=== PATIENT | male | born 1945 | race Caucasian/White ===

== ENCOUNTER 2025-03-07 10:49 | Day surgery (SDC) | payer OTHER ==
[2025-03-03 08:09] LABS: MEAN PLATELET VOLUME 8.6 FL (7.4-10.4); RED CELL DISTRIBUTION WIDTH 14.1 % (11.5-14.5)
[2025-03-03 08:11] LABS: APTT 28 SECONDS (22-32); INR 1.1 INR
[2025-03-03 08:36] LABS: CHOL/HDL RATIO 2.8 (0.00-4.99); CREATININE 0.83 MG/DL (0.60-1.10); LDL CHOLESTEROL 109 MG/DL (50-100); TOTAL CARBON DIOXIDE 28.6 MMOL/L (24-32); eGFR 89 ML/MIN
[~2025-03-07] VITALS: Ht 165.1 cm; Wt 77.2 kg
[2025-03-07] VITALS (10 sets, daily range): BP systolic 109–169; BP diastolic 68–105; PULSE 60–82; RESP 16–18; TEMP 97.3; O2SAT 94–99
[~2025-03-07 10:49] MED LIST: ENAL20TA36 PO; MULT-1085 PO
--- NOTE | 2025-03-07 11:35 | ELECTROCARDIOGRAPH REPORT ---
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 Nabor Harley Measurements Intervals [place] Rate: 71 P: -69 VT: 174 QRS: 41 QRSD: 96 T: 30 QT: 428 QTc: 466 Interpretive Statements Sinus or ectopic atrial rhythm Minimal ST elevation, anterior leads Electronically Signed On 03-08-2025 13:22:[address] Nabor Harley Please click the below link to view image of tracing.
[2025-03-07] MEDS ORDERED: verapamil 2.5 mg/ml inj IV ONE (12:36)
[2025-03-07] MEDS ORDERED: heparin 1,000unit/ml 10ml vial 10 ML ONE (12:36)
[2025-03-07] MEDS ORDERED: midazolam 1 mg/ML 2ml injection ONE (12:36)
[2025-03-07] MEDS ORDERED: fentaNYL/PF 50MCG/1 ML 2ML syringe ONE (12:36)
[2025-03-07] MEDS ORDERED: nitroGLYCERIN 500mcg/5mL D5W 5 ML IV ONE (12:37)
[2025-03-07] MEDS ORDERED: LIDOcaine 1% (10mg/ml) 2ml vial ONE (13:08)
[2025-03-07 13:36] LABS: ISTAT HGB ART 13.6 g/dl (14.0-17.9); ISTAT Hct ART 40 %PCV (42-52); ISTAT O2 SATURATION ARTERIAL 96 % (95-98); ISTAT SOURCE ART
[2025-03-07] MEDS ORDERED: iohexol 350 MG/ML 50ML vial IV ONE (13:36)
[2025-03-07] MEDS ORDERED: HYDROcodone/acetaminophen 5mg/325mg tablet PO PRN (14:15)
[2025-03-07] MEDS ORDERED: HYDROcodone/acetaminophen 10/325mg tab PO PRN (14:15)
--- NOTE | 2025-03-07 16:02 | CARDIAC CATH REPORT ---
Cardiac Cath Report Providers to CC CC: ROMAN MINOR MD; Zion Prado MD Procedure Comments: 1. Right Heart Catheterization 2. Selective Coronary Angiography 3. Right Brachial vein access 4. Right Radial artery access Brief History/Indications: 79yo man with HTN, HLD, Severe Aortic stenosis referred for evaluation prior to consideration of AVR. Techniques: After informed consent was obtained, the patient was brought to the cardiac catheterization laboratory and prepped and draped in usual sterile fashion for left heart catheterization and other procedures mentioned above. The right wrist and right AC fossa were anesthetized with 1% Lidocaine. The right AC IV was exchanged over a wire for an 6fr sheath. The right radial artery accessed via the Seldinger technique after which a 6Fr sheath was placed. The [place] was advanced via the right AC sheath to the right atrium, the right ventricle, the pulmonary artery, and wedge position. Through the 6Fr right radial sheath, a TIG was used to engage the left coronary artery and the right coronary artery. At the conclusion of the case the sheath was removed and hemostasis obtained with a VascBand for the radial sheath and manual compression for the brachial sheath. Findings Findings: HEMODYNAMICS: RA: 3 mmHg RV: 25/-, RVEDP 3 mmHg PA: 24/4, mPAP 13 mmHg PCWP: 2 mmHg(V-waves to 3mmHg) TP mmHg DP mmHg Ao: 106/66, MAP 84 mmHg LV: Not obtained due to known severe PA Sat: 76% Ao Sat: 96% CO/CI (Ingrid): 6.98/3.78 PVR: 2 ROD CORONARY ARTERIES: Lt Dominant LMCA: 30% distal stenosis LAD: Ostial 40% stenosis. Mid 20-30% stenosis Dx: Luminal Irregularities LCx: Proximal 30-40% stenosis at OM1 OM1: Ostial 40-50% stenosis OM2: Luminal Irregularities OM3l: Luminal Irregularities RCA: Mid 20% stenosis PDA: Luminal Irregularities PL: Luminal Irregularities Results Results: 1. No significant obstructive CAD 2. RRA and RBV access, closed with VascBand and manual compression (Extremely tortuous Rt innominate artery) RECOMMENDATIONS: 1. Agree with referral to [facility] for evaluation of severe, symptomatic aortic stenosis. LOU MINOR MD Mar 07, 2025 16:02
[2025-03-08 06:06] LABS: ISTAT HGB MIX 14.3 g/dl (14.0-17.9); ISTAT Hct MIX 42 %PCV (42-52); ISTAT O2 SATURATION MIX VENOUS 76 % (60-80); ISTAT SOURCE VEN
== END 2025-03-07 16:35 | disposition home or self-care (01) ==
LOC: SSTAY O 10:49
PROVIDERS: ATTEND Student in an Organized Health Care Education/Training Program
DX: I35.0 Nonrheumatic aortic (valve) stenosis (principal); I25.10 Atherosclerotic heart disease of native coronary artery without angina pectoris; I10 Essential (primary) hypertension; E78.00 Pure hypercholesterolemia, unspecified; M06.9 Rheumatoid arthritis, unspecified; Z79.899 Other long term (current) drug therapy
CPT/HCPCS: 36415; 80048; 80061; 82803; 85014; 85025; 85610; 85730; 93005; 93456; 99152; 99153; J1644; J2003; J2250; J3010; J3490; J7030; Q0163; Q9967; A6258; A6402; A6449; C1751; C1894